=== PATIENT | male | born 1960 | race Caucasian/White ===

== ENCOUNTER 2025-06-05 07:33 | Inpatient (IN) | payer BC, MEDICARE ==
[2025-06-05 08:07] LABS: #Basophils 0.09 10x3/uL (0.0-0.2); #Eosinophils 0.32 10x3/uL (0.0-0.5); #Monocytes 1.03 10x3/uL (0.0-1.1); #Neutrophils 5.91 10x3/uL (1.5-8.4); %Basophils 0.8 % (0.0-2.0); %Eosinophils 2.8 % (0.0-6.0); %Lymphocytes 35.9 % (18.0-47.0); %Monocytes 8.9 % (0.0-10.0); %Neutrophils 51.3 % (40.0-75.0); Hematocrit 50.0 % (38.8-50.0); Hemoglobin 16.6 g/dL (13.5-17.5); Mean Corpuscular Hemoglobin 31.1 pg (27.0-33.0); Mean Corpuscular Volume 93.6 fL (81.2-95.1); Platelet Count 231 10x3/uL (150-450); Red Blood Cell (RBC) Count 5.34 10x6/uL (4.32-5.72); White Blood Cell (WBC) Count 11.52 10x3/uL (3.5-10.5)
[2025-06-05 08:26] LABS: Troponin I Less than 0.010 ng/mL (< 0.028)
[2025-06-05 08:28] LABS: Acetaminophen Less than 10 mcg/mL (Less than 10); Salicylate Less than 8.0 mg/dL (Less than 8.0)
[2025-06-05 08:35] LABS: ALT (SGPT) 22 U/L (Less than 45); AST (SGOT) 30 U/L (11-34); Albumin 4.1 g/dL (3.1-4.5); Alkaline Phosphatase 66 U/L (40-110); Anion Gap 14 mmol/L (10-20); BUN (Urea Nitrogen) 15 mg/dL (8.4-25.7); Bilirubin, Total 0.6 mg/dL (0.3-1.2); Calc. Creatinine Clearance 0 mL/min (70-130); Calcium 9.5 mg/dL (7.8-10.44); Carbon Dioxide 25 mmol/L (23-31); Chloride 108 mmol/L (98-107); Globulin 3.1 g/dL (2.4-3.5); Glucose 95 mg/dL (80-115); Potassium 4.5 mmol/L (3.5-5.1); Sodium 142 mmol/L (136-145)
[2025-06-05 08:39] LABS: INR-International Normal Ratio 1.0; PTT 27.2 sec (22.0-33.0); Prothrombin Time 10.6 sec (9.5-12.1)
[2025-06-05] MEDS ORDERED: Aspirin Chewable 81 MG TAB ONE (08:52)
[2025-06-05 09:22] LABS: Cocaine Metabolite Screen Negative (Negative); THC/Cannabinoid Screen Negative (Negative); Tricyclic Screen Negative (Negative)
[2025-06-05 09:45] LABS: Glucose, Urine (Dipstick) Normal (Negative); Leukocyte Negative (Negative); Protein, Urine (Dipstick) 15 mg/dl (Neg-Trace); Specific Gravity, Urine 1.005 (1.005-1.030)
[2025-06-05 10:01] LABS: Bacteria/HPF None Seen HPF (None Seen); CAUTI Indications for Culture Pelvic or flank pain; RBC/HPF None Seen HPF (0-3); WBC/HPF None Seen HPF (0-3)
[2025-06-05 10:02] LABS: Urine Culture Reflex No No
[2025-06-05] MEDS ORDERED: Iopamidol 370 76% 100 ML VIAL ONE (10:29)
[2025-06-05] MEDS ORDERED: hydrALAZINE 20 MG/ML VIAL SLOW IVP PRN (10:32)
[2025-06-06 04:49] LABS: Cardiac Risk 2.7 (Less than 4.5); Cholesterol 111.0 mg/dl (< 200 Desired); HDL Cholesterol 41.0 mg/dL (>60 Neg Risk); LDL Cholesterol, Calculated 45.0 mg/dL; Triglycerides 125.0 mg/dL (Less than 150)
[2025-06-06] MEDS: Aspirin 81 mg Enteric Coated Tablet PO SCH (09:11)
[2025-06-06] MEDS: Enoxaparin 40 MG (0.4 mL) SYRINGE SC SCH (09:12)
[2025-06-06 11:50] VITALS: BP 116/74; TEMP 98.3
== END 2025-06-06 16:34 | disposition home or self-care (01) | DRG 65 ==
LOC: CSHERS 07:33 → CSHERHOLD 11:04 → CSHTELE 17:16
PROVIDERS: ADMIT Student in an Organized Health Care Education/Training Program; ATTEND Family Medicine
DX: I63.9 Cerebral infarction, unspecified (principal); G81.94 Hemiplegia, unspecified affecting left nondominant side; R29.810 Facial weakness; R47.81 Slurred speech; I10 Essential (primary) hypertension; F17.210 Nicotine dependence, cigarettes, uncomplicated; R29.702 NIHSS score 2; E78.5 Hyperlipidemia, unspecified; I25.10 Atherosclerotic heart disease of native coronary artery without angina pectoris; G47.33 Obstructive sleep apnea (adult) (pediatric); Z95.1 Presence of aortocoronary bypass graft; Z88.8 Allergy status to other drugs, medicaments and biological substances; Z88.5 Allergy status to narcotic agent; Z79.82 Long term (current) use of aspirin; Z79.899 Other long term (current) drug therapy; Z79.01 Long term (current) use of anticoagulants; Z90.49 Acquired absence of other specified parts of digestive tract
CPT/HCPCS: 36415; 36416; 70450; 70496; 70498; 70551; 80053; 80061; 80306; 80307; 81001; 82550; 84484; 85025; 85610; 85730; 93005; 93010; 93306; 94760; J1650; J7030; Q9967